=== PATIENT | male | born 1970 ===

== ENCOUNTER 2017-04-03 13:19 | Emergency (ER) | payer MEDICAID, OTHER ==
[2017-04-03 13:19] VITALS: BMI 31.8
[2017-04-03] MEDS ORDERED: Sodium Chloride 0.9% 1,000 ML IV STA ×2 (14:05→18:57)
--- NOTE | 2017-04-03 14:09 | ED PDOC ---
HPI: Abdomen Time Seen by Provider: 04/03/17 13:55 Chief Complaint (Nursing): Abdominal Pain History Per: Patient Onset/Duration Of Symptoms: Days (14) Current Symptoms Are (Timing): Still Present Severity: Moderate Pain Scale Rating Of: 3 Location Of Pain/Discomfort: Diffuse Quality Of Discomfort: Unable To Describe Associated Symptoms: Nausea, Vomiting, Diarrhea. denies: Fever Additional Complaint(s): Generalized abd pain assoc with vomiting and diarrhea x 2 weeks. ? specs of blood in vomitus but not in stool. No fever.H/o Hep C Past Medical History Vital Signs: Last Vital Signs Temp 97.0 F L 04/03/17 13:23 Pulse 76 04/03/17 14:45 Resp 16 04/03/17 13:23 BP 190/113 H 04/03/17 14:45 Pulse Ox 99 04/03/17 14:09 - Medical History PMH: Asthma, Hepatitis (C), HTN Denies: Chronic Kidney Disease - Surgical History Surgical History: Hernia Repair Denies: Pacemaker - Family History Family History: States: Unknown Family Hx - Immunization History Hx Tetanus Toxoid Vaccination: No Hx Influenza Vaccination: No Hx Pneumococcal Vaccination: No - Home Medications Home Medications: Ambulatory Orders Medication Instructions Recorded cloNIDine 0.3 mg/24 hr 0.3 mg TD Q7D 05/07/16 [[id number]] - Allergies Allergies/Adverse Reactions: Allergies Allergy/AdvReac Type Severity Reaction Status Date / Time "hepatitis medication" Allergy RASH Uncoded 04/03/17 13:28 Review of Systems ROS Statement: Except As Marked, All Systems Reviewed And Found Negative Constitutional: Negative for: Fever Gastrointestinal: Positive for: Nausea, Vomiting, Abdominal Pain, Diarrhea Physical Exam - Reviewed Nursing Documentation Reviewed: Yes Vital Signs Reviewed: Yes - Physical Exam Appears: Positive for: Non-toxic, No Acute Distress Head Exam: Positive for: ATRAUMATIC, NORMAL INSPECTION, NORMOCEPHALIC Skin: Positive for: Normal Color, Warm, DRY Eye Exam: Positive for: EOMI, Normal appearance, PERRL ENT: Positive for: Other (Mucous membranes dry) Neck: Positive for: Normal, Painless ROM Cardiovascular/Chest: Positive for: Regular Rate, Rhythm Respiratory: Positive for: CNT, Normal Breath Sounds Gastrointestinal/Abdominal: Positive for: Bowel Sounds, Soft, Tenderness ( diffuse) Back: Positive for: Normal Inspection Extremity: Positive for: Normal ROM Neurologic/Psych: Positive for: Alert, Oriented - Laboratory Results Result Diagrams: 04/03/17 14:15 04/03/17 14:15 - ECG O2 Sat by Pulse Oximetry: 99 Disposition - Clinical Impression Clinical Impression: Abdominal pain - Patient ED Disposition Is Patient to be Admitted: Transfer of Care - Disposition Disposition: Transfer of Care Disposition Time: 15:28 Condition: FAIR Forms: [employer] (Kiswahili) Patient Signed Over To: Marii Cool
[2017-04-03 14:38] LABS: BASO % 0.3 % (0.0-2.0); EOS # 0.2 K/uL (0.0-0.7); EOS % 4.9 % (0.0-4.0); HEMOGLOBIN 15.1 g/dL (12.0-18.0); LYMPH # 0.8 K/uL (1.0-4.3); LYMPH % 23.6 % (20.0-40.0); MEAN CELL VOLUME 95.7 fl (80.0-94.0); MEAN CORPUSCULAR HEMOGLOBIN 33.5 pg (27.0-31.0); MONO # 0.4 K/uL (0.0-0.8); MONO % 11.2 % (0.0-10.0); NEUT # 2.1 K/uL (1.8-7.0); NRBC % 0.2 % (0.0-0.0); RBC 4.5 Mil/uL (4.40-5.90); RED CELL DISTRIBUTION WIDTH 15.2 % (11.5-14.5); WHITE BLOOD COUNT 3.5 K/uL (4.8-10.8)
[2017-04-03 14:59] LABS: ALBUMIN 3.8 g/dL (3.5-5.0); ALT/SGPT 68 U/L (21-72); AST/SGOT 86 U/L (17-59); BLOOD UREA NITROGEN 16 mg/dl (9-20); CALCIUM 8.8 mg/dL (8.4-10.2); GFR AFRICAN-AMERICAN > 60; GFR NON-AFRICAN AMERICAN > 60
[2017-04-03] MEDS ORDERED: Iohexol 300 100 ML IJ ONE (15:50)
[2017-04-03] MEDS ORDERED: Sodium Chloride 0.9% 100 ML ONE (15:50)
[2017-04-03 16:45] VITALS: O2SAT 98
--- NOTE | 2017-04-03 16:51 | ED PDOC ---
- Laboratory Results Result Diagrams: 04/03/17 14:15 04/03/17 14:15 - ECG O2 Sat by Pulse Oximetry: 98 Medical Decision Making Medical Decision Making: Time: 15:00 --Patient endorsed to me by Dr. Black, pending CT scan. Time: 17:02 CT ABDOMEN AND PELVIS FINDINGS: LOWER THORAX: Unremarkable. LIVER: Hepatic steatosis. Nodular hepatic contour. No gross lesion or ductal dilatation. GALLBLADDER AND BILE DUCTS: Gallbladder distention with wall thickening/ edema and pericholecystic fluid. PANCREAS: Unremarkable. No gross lesion or ductal dilatation. SPLEEN: Splenomegaly. ADRENALS: Unremarkable. No mass. KIDNEYS AND URETERS: Bilateral cortical scarring. No hydronephrosis. No solid mass. VASCULATURE: Dilated main portal vein and splenic vein. Recannulized umbilical vein. No aortic aneurysm. BOWEL: Unremarkable. No obstruction. No gross mural thickening. APPENDIX: Normal appendix. PERITONEUM: Bilateral fat containing inguinal hernias. No free fluid. No free air. LYMPH NODES: Unremarkable. No enlarged lymph nodes. BLADDER: Unremarkable. REPRODUCTIVE: Unremarkable. BONES: Market L4-5 degenerative changes. No acute fracture. OTHER FINDINGS: None. IMPRESSION: Gallbladder distention with wall thickening/ edema and pericholecystic fluid. Gallbladder wall thickening is a nonspecific finding which can be seen with hepatitis, cholecystitis, CHF or hypoproteinemic states. Clinical correlation is recommended. If clinical concern for gallbladder pathology exists, a HIDA scan may be performed. Hepatic cirrhosis with portal hypertension and splenomegaly. Time: 19:[address] Gibbons, who advised patient be hydrated with 1L of fluids and follow up with an outpatient clinic. pt refused the iv fluids, and wants to go home. pt yolette be dc and follow up tomorrow w Dr Aggarwal/Edwige. pt tolerated po/. Scribe Attestation: Documented by Edgar Vega, acting as a cesar Cool MD. Provider Scribe Attestation: All medical record entries made by the Scribe were at my direction and personally dictated by me. I have reviewed the chart and agree that the record accurately reflects my personal performance of the history, physical exam, medical decision making, and the department course for this patient. I have also personally directed, reviewed, and agree with the discharge instructions and disposition. Disposition Counseled Patient/Family Regarding: Studies Performed, Diagnosis, Need For Followup - Clinical Impression Clinical Impression: Abdominal pain - POA Present On Arrival: None - Disposition Disposition: Routine/Home Disposition Time: 19:00 Condition: IMPROVED Additional Instructions: follow up with Dr Aggarwal and Dr Gibbons in 2 days as instructed return to ED with any worsening or concerning symptoms Instructions: Nausea and Vomiting, Adult (DC) Forms: [employer] (Khmer), [facility] ED School/Work Excuse
--- NOTE | 2017-04-03 17:04 | CT ---
PROCEDURE: CT Abdomen and Pelvis with contrast HISTORY: Abd pain NVD COMPARISON: None. TECHNIQUE: Contrast dose: 95 mL Omnipaque 300 Radiation dose: Total exam DLP = 1083.7 mGy-cm. This CT exam was performed using one or more of the following dose reduction techniques: Automated exposure control, adjustment of the mA and/or kV according to patient size, and/or use of iterative reconstruction technique. FINDINGS: LOWER THORAX: Unremarkable. LIVER: Hepatic steatosis. Nodular hepatic contour. No gross lesion or ductal dilatation. GALLBLADDER AND BILE DUCTS: Gallbladder distention with wall thickening/ edema and pericholecystic fluid. PANCREAS: Unremarkable. No gross lesion or ductal dilatation. SPLEEN: Splenomegaly. ADRENALS: Unremarkable. No mass. KIDNEYS AND URETERS: Bilateral cortical scarring. No hydronephrosis. No solid mass. VASCULATURE: Dilated main portal vein and splenic vein. Recannulized umbilical vein. No aortic aneurysm. BOWEL: Unremarkable. No obstruction. No gross mural thickening. APPENDIX: Normal appendix. PERITONEUM: Bilateral fat containing inguinal hernias. No free fluid. No free air. LYMPH NODES: Unremarkable. No enlarged lymph nodes. BLADDER: Unremarkable. REPRODUCTIVE: Unremarkable. BONES: Market L4-5 degenerative changes. No acute fracture. OTHER FINDINGS: None. IMPRESSION: Gallbladder distention with wall thickening/ edema and pericholecystic fluid. Gallbladder wall thickening is a nonspecific finding which can be seen with hepatitis, cholecystitis, CHF or hypoproteinemic states. Clinical correlation is recommended. If clinical concern for gallbladder pathology exists, a HIDA scan may be performed. Hepatic cirrhosis with portal hypertension and splenomegaly.
--- NOTE | 2017-04-03 18:28 | US ---
HISTORY: possible cholecystitis COMPARISON: CT abdomen and pelvis from 04/03/2017. TECHNIQUE: Sonographic evaluation of the right upper quadrant of the abdomen. FINDINGS: LIVER: Measures 14.6 cm in length. There is diffuse increased echogenicity with nodular contour. No mass. No intrahepatic bile duct dilatation. GALLBLADDER: There are no gallstones or pericholecystic fluid. There is diffuse gallbladder wall thickening measuring 7 mm. The sonographic Mayfield's sign is negative. COMMON BILE DUCT: Measures 5.0 mm. No stones. No dilatation. PANCREAS: Unremarkable as visualized. No mass. No ductal dilatation. RIGHT KIDNEY: Measures 11.5 cm in length. Normal echogenicity. No calculus, mass, or hydronephrosis. AORTA: No aneurysmal dilatation. IVC: Unremarkable. OTHER FINDINGS: None . IMPRESSION: Findings are concerning with cirrhosis of liver. Diffuse gallbladder wall thickening is likely secondary to hepatic disease. No evidence of cholelithiasis or biliary dilatation.
[2017-04-03 19:10] VITALS: RESP 18
[2017-04-03 19:24] VITALS: BP 178/90; PULSE 79; TEMP 97.8
== END 2017-04-03 19:25 | disposition home or self-care (01) ==
LOC: H.ER 13:19
DX: K40.90 Unilateral inguinal hernia, without obstruction or gangrene, not specified as recurrent (principal); I10 Essential (primary) hypertension; K76.6 Portal hypertension; K74.60 Unspecified cirrhosis of liver; J45.909 Unspecified asthma, uncomplicated
CPT/HCPCS: 74177; 76705; 80053; 85025; 87040; 96374; 99283; J2405; J7040; Q9967

== ENCOUNTER 2017-08-30 23:33 | Emergency (ER) | payer OTHER ==
[2017-08-30 23:34] VITALS: BMI 31.8
[2017-08-31] MEDS ORDERED: Sodium Chloride 0.9% 1,000 ML IV SCH (00:45)
--- NOTE | 2017-08-31 01:26 | ED PDOC ---
Syncope/Near Syncope/Dizziness Time Seen by Provider: 08/31/17 00:18 Chief Complaint (Nursing): Dizziness/Lightheaded Chief Complaint (Provider): Dizziness/Lightheaded History Per: Patient History/Exam Limitations: no limitations Onset/Duration Of Symptoms: Hrs Current Symptoms Are (Timing): Still Present Additional Complaint(s): 47 y/o male with a PMHx of Hepatitis C and cirrhosis presents to the ED complaining of lightheadedness. Patient reports he was recently admitted at [facility] with AFIB and started on Metropolol 2.5 mg Daily at the ED. Patient reports that approximately one hour after taking first dose, he began to feel lightheaded, dizzy and weak. Patient states he feels very dehydrated and has a very dry mouth. Patient reports upon lying down, he feels better. Denies chest pain and shortness of breath. PMD: None Provided Past Medical History Reviewed: Historical Data, Nursing Documentation, Vital Signs Vital Signs: Last Vital Signs Temp 97.9 F 08/30/17 23:59 Pulse 58 L 08/30/17 23:59 Resp 20 08/30/17 23:59 BP 188/99 H 08/30/17 23:59 Pulse Ox 98 08/30/17 23:59 - Medical History PMH: Asthma, Hepatitis (C), HTN Denies: Chronic Kidney Disease - Surgical History Surgical History: Hernia Repair Denies: Pacemaker - Family History Family History: States: Unknown Family Hx - Immunization History Hx Tetanus Toxoid Vaccination: No Hx Influenza Vaccination: No Hx Pneumococcal Vaccination: No - Home Medications Home Medications: Ambulatory Orders Medication Instructions Recorded cloNIDine 0.3 mg/24 hr 0.3 mg TD Q7D 05/07/16 [[id number]] - Allergies Allergies/Adverse Reactions: Allergies Allergy/AdvReac Type Severity Reaction Status Date / Time "hepatitis medication" Allergy RASH Uncoded 08/30/17 23:59 Review of Systems ROS Statement: Except As Marked, All Systems Reviewed And Found Negative Constitutional: Positive for: Weakness Cardiovascular: Negative for: Chest Pain Respiratory: Negative for: Shortness of Breath Neurological: Positive for: Dizziness (and lightheaded) Physical Exam - Reviewed Nursing Documentation Reviewed: Yes Vital Signs Reviewed: Yes - Physical Exam Appears: Positive for: Well, No Acute Distress Head Exam: Positive for: ATRAUMATIC, NORMAL INSPECTION, NORMOCEPHALIC Skin: Positive for: Normal Color, Warm, Dry Eye Exam: Positive for: EOMI, Normal appearance, PERRL ENT: Positive for: Normal ENT Inspection Neck: Positive for: Normal, Painless ROM Cardiovascular/Chest: Positive for: Regular Rate, Rhythm. Negative for: Murmur Respiratory: Positive for: Normal Breath Sounds. Negative for: Respiratory Distress Gastrointestinal/Abdominal: Positive for: Normal Exam, Soft. Negative for: Tenderness Back: Positive for: Normal Inspection Extremity: Positive for: Normal ROM. Negative for: Pedal Edema, Deformity Neurologic/Psych: Positive for: Alert, Oriented (x3). Negative for: Motor/ Sensory Deficits - Laboratory Results Result Diagrams: 08/31/17 02:58 08/31/17 02:58 - ECG O2 Sat by Pulse Oximetry: 98 (RA) Pulse Ox Interpretation: Normal Medical Decision Making Medical Decision Making: Time: 44 A/P: 47 y/o male iwht a PMHx of Hepatitis C, cirrhosis, and A-Fib presenting with lightheadedness after beta chayito usage. -- Patient is well appearing by hypertensive -- Possible having side affect of beta chayito therapy -- Will check electrolyte -- Hydrate patient and re-evaluation -- EKG -- Alchol Serum -- BMP -- Urine Drug Screen -- Troponin I -- CBC with differentials -- PTT -- Prothrombin Time -- CXR One View -- Sodium Chloride IV 1000 mls/hr -- Cardiac Monitory Cont -- Urinalysis 530AM Patient is improving, labs wnl, patient drinking water, blood pressure improved , appearing better, stable gait, advised importance of followup with PMD. Scribe Attestation: Documented by Jose Antonio Salinas acting as a scribe for Dr. Boo Camargo MD. Provider Scribe Attestation: All medical record entries made by the Scribe were at my direction and personally dictated by me. I have reviewed the chart and agree that the record accurately reflects my personal performance of the history, physical exam, medical decision making, and the department course for this patient. I have also personally directed, reviewed, and agree with the discharge instructions and disposition. Disposition - Clinical Impression Clinical Impression: Dizziness - Disposition Referrals: Ruiz Gibbons MD [Family Provider] - Disposition: Routine/Home Disposition Time: 05:30 Condition: IMPROVED Instructions: Side Effects From Medicines, Dizziness, Nonvertigo, (DC) Forms: [employer] (Sinhala)
[2017-08-31 03:17] LABS: BASO % 0.7 % (0.0-2.0); EOS # 0.2 K/uL (0.0-0.7); EOS % 4.8 % (0.0-4.0); HEMOGLOBIN 13.5 g/dL (12.0-18.0); LYMPH # 1.2 K/uL (1.0-4.3); LYMPH % 32.3 % (20.0-40.0); MEAN CELL VOLUME 96.9 fl (80.0-94.0); MEAN CORPUSCULAR HEMOGLOBIN 34.1 pg (27.0-31.0); MEAN CORPUSCULAR HGB CONC 35.2 g/dL (33.0-37.0); MEAN PLATELET VOLUME 8.1 fl (7.2-11.7); MONO # 0.5 K/uL (0.0-0.8); MONO % 12.6 % (0.0-10.0); NEUT # 1.8 K/uL (1.8-7.0); NEUT % 49.6 % (50.0-75.0); NRBC % 0.5 % (0.0-0.0); RBC 3.96 Mil/uL (4.40-5.90); RED CELL DISTRIBUTION WIDTH 15.1 % (11.5-14.5); WHITE BLOOD COUNT 3.6 K/uL (4.8-10.8)
[2017-08-31 03:18] LABS: CALCIUM 8.4 mg/dL (8.4-10.2); GFR AFRICAN-AMERICAN > 60; GFR NON-AFRICAN AMERICAN > 60
[2017-08-31 03:50] LABS: BLOOD UREA NITROGEN 20 mg/dl (9-20)
[2017-08-31 05:07] VITALS: BP 140/99; PULSE 62; RESP 14; TEMP 98
--- NOTE | 2017-08-31 12:00 | RAD ---
Date of service: 08/31/2017 PROCEDURE: CHEST RADIOGRAPH, 1 VIEW HISTORY: dizziness COMPARISON: None available. FINDINGS: LUNGS: Clear. PLEURA: No pneumothorax or pleural fluid seen. CARDIOVASCULAR: Normal. OSSEOUS STRUCTURES: No significant abnormalities. VISUALIZED UPPER ABDOMEN: Normal. OTHER FINDINGS: None. IMPRESSION: No active disease.
--- NOTE | 2017-08-31 13:53 | CARD ---
APPROVED REPORT Date of service: 08/31/2017 EKG Measurement Heart [id number] <Conclusion> Normal sinus rhythm Normal ECG
[2017-08-31 21:00] VITALS: O2SAT 98
== END 2017-08-31 05:45 | disposition home or self-care (01) ==
LOC: H.ER 23:33
DX: R42 Dizziness and giddiness (principal); B19.20 Unspecified viral hepatitis C without hepatic coma; I10 Essential (primary) hypertension; J45.909 Unspecified asthma, uncomplicated

== ENCOUNTER 2017-09-03 20:44 | Observation (INO) | payer OTHER ==
[2017-09-03 20:46] VITALS: BMI 31.8
[2017-09-03 21:47] LABS: BASO % 0.9 % (0.0-2.0); EOS # 0.2 K/uL (0.0-0.7); EOS % 4.7 % (0.0-4.0); HEMOGLOBIN 12.7 g/dL (12.0-18.0); LYMPH # 0.9 K/uL (1.0-4.3); LYMPH % 25.9 % (20.0-40.0); MEAN CELL VOLUME 95.7 fl (80.0-94.0); MEAN CORPUSCULAR HGB CONC 35.5 g/dL (33.0-37.0); MEAN PLATELET VOLUME 7.4 fl (7.2-11.7); MONO # 0.4 K/uL (0.0-0.8); NEUT # 1.9 K/uL (1.8-7.0); NEUT % 57.5 % (50.0-75.0); RBC 3.73 Mil/uL (4.40-5.90); RED CELL DISTRIBUTION WIDTH 15.5 % (11.5-14.5); WHITE BLOOD COUNT 3.3 K/uL (4.8-10.8)
[2017-09-03 21:56] LABS: ALBUMIN 3.3 g/dL (3.5-5.0); ALT/SGPT 56 U/L (21-72); AST/SGOT 69 U/L (17-59); BLOOD UREA NITROGEN 19 mg/dl (9-20); CALCIUM 8.6 mg/dL (8.4-10.2); GFR NON-AFRICAN AMERICAN > 60
--- NOTE | 2017-09-03 22:09 | ED PDOC ---
HPI: Chest Pain Time Seen by Provider: 09/03/17 21:10 Chief Complaint (Nursing): Chest Pain Chief Complaint (Provider): Chest Pain History Per: Patient History/Exam Limitations: no limitations Onset/Duration Of Symptoms: Days (x4) Current Symptoms Are (Timing): Still Present Additional Complaint(s): 47 y/o male with a PMHx of A Fib, HTN and hepatitis C presenting for evaluation of chest pain x4 days. Patient was at this facility 3 days ago and signed out AMA due to dissatisfaction regarding IV placement by a nurse. Patient signed out AMA after being made aware his workup showed he had a soft heart attack. Patient states [place] [facility] [place] developed chest pain in his home. 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 Patient states he saw his PMD, Dr. Gibbons, due to his continued chest pain and he referred him back to this facility to be admitted for workup and cardiac consultation. PMD: Dr. 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)) - Immunization History Hx Tetanus Toxoid Vaccination: No Hx Influenza Vaccination: No Hx Pneumococcal Vaccination: No - Home Medications Home Medications: Ambulatory Orders Medication Instructions Recorded Metoprolol Tartrate [Lopressor] 25 mg PO BID 09/03/17 - Allergies Allergies/Adverse Reactions: Allergies Allergy/AdvReac Type Severity Reaction Status Date / Time trandolapril [From Mavik] Allergy RASH Verified 09/03/17 21:04 Review of Systems ROS Statement: Except As Marked, All Systems Reviewed And Found Negative Cardiovascular: Positive for: Chest Pain Physical Exam - Reviewed Nursing Documentation Reviewed: Yes Vital Signs Reviewed: Yes - Physical Exam Appears: Positive for: Non-toxic, No Acute Distress Head Exam: Positive for: ATRAUMATIC, NORMAL INSPECTION, NORMOCEPHALIC Skin: Positive for: Normal Color, Warm, Dry. Negative for: Rash Eye Exam: Positive for: EOMI, Normal appearance, PERRL ENT: Positive for: Normal ENT Inspection Neck: Positive for: Normal, Painless ROM, Supple Cardiovascular/Chest: Positive for: Regular Rate, Rhythm. Negative for: Murmur Respiratory: Positive for: Normal Breath Sounds. Negative for: Respiratory Distress Gastrointestinal/Abdominal: Positive for: Normal Exam, Soft. Negative for: Tenderness Back: Positive for: Normal Inspection. Negative for: L CVA Tenderness, R CVA Tenderness, Vertebral Tenderness Extremity: Positive for: Normal ROM. Negative for: Pedal Edema, Deformity Neurologic/Psych: Positive for: Alert, Oriented (x3). Negative for: Motor/ Sensory Deficits - Laboratory Results Result Diagrams: 09/03/17 21:44 09/03/17 21:44 - ECG O2 Sat by Pulse Oximetry: 97 (RA) Pulse Ox Interpretation: Normal Medical Decision Making Medical Decision Makin:15 Impression: 47 y/o male with intermittent chest pain Plan: -EKG -CMP -Urine drug screen -Troponin I -CBC w/ differential -PTT/PT -Heplock insertion -Reevaluation 21:40 Case was discussed with Dr. Gibbons. Patient will be placed under observation status for chest pain. Scribe Attestation: Documented by Edgar Vega, acting as a scribe for Elliot Chase MD. Provider Scribe Attestation: All medical record entries made by the Scribe were at my direction and personally dictated by me. I have reviewed the chart and agree that the record accurately reflects my personal performance of the history, physical exam, medical decision making, and the department course for this patient. I have also personally directed, reviewed, and agree with the discharge instructions and disposition. Disposition - Clinical Impression Clinical Impression: Chest pain - Patient ED Disposition Is Patient to be Admitted: Yes Discussed With : Ruiz Gibbons - Disposition Disposition Time: 21:40 Condition: FAIR - Pt Status Changed To: Hospital Disposition Of: Observation
[2017-09-03 22:30] LABS: INR 1.4 (0.9-1.2); PROTHROMBIN TIME 15.5 Seconds (9.8-13.1)
[2017-09-04] MEDS ORDERED: Potassium Chloride 20 mEq ER Tab PO ONE ×2 (00:06→00:57)
[2017-09-04 01:50] LABS: BARBITURATES, UR NEGATIVE (NEGATIVE); BENZODIAZEPINES, UR NEGATIVE (NEGATIVE); OPIATES, UR NEGATIVE (NEGATIVE); PHENCYCLIDINE, UR NEGATIVE (NEGATIVE)
--- NOTE | 2017-09-04 06:47 | CP.PCM.CON ---
History of Present Illness - History of Present Illness History of Present Illness: Consultation for evaluation of chest pain HPI: CP - intermittent x 4-5 days recently at [facility] [place] where he was told that his enzymes are +ve Review of Systems - Review of Systems Systems not reviewed;Unavailable: Acuity of Condition - Constitutional Constitutional: As Per HPI - EENT Eyes: As Per HPI Ears: As Per HPI Nose/Mouth/Throat: As Per HPI - Cardiovascular Cardiovascular: As Per HPI - Respiratory Respiratory: As Per HPI - Gastrointestinal Gastrointestinal: As Per HPI - Genitourinary Genitourinary: As Per HPI - Reproductive: Male Reproductive:Male: As Per HPI - Musculoskeletal Musculoskeletal: As Per HPI - Integumentary Integumentary: As Per HPI - Neurological Neurological: As Per HPI - Psychiatric Psychiatric: As Per HPI - Endocrine Endocrine: As Per HPI - Hematologic/Lymphatic Hematologic: As Per HPI Past Patient History - Past Medical History & Family History Past Medical History?: Yes - Past Social History Alcohol: None 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)) - CARDIAC Hx Atrial Fibrillation: Yes Hx Hypertension: Yes Hx Pacemaker: No - PULMONARY Hx Asthma: Yes - NEUROLOGICAL Hx Neurological Disorder: No - HEENT Hx HEENT Problems: No - RENAL Hx Chronic Kidney Disease: No - ENDOCRINE/METABOLIC Hx Endocrine Disorders: No - HEMATOLOGICAL/ONCOLOGICAL Hx Blood Disorders: Yes Hx Cirrhosis: Yes Hx Hepatitis C: Yes - INTEGUMENTARY Hx Dermatological Problems: No - MUSCULOSKELETAL/RHEUMATOLOGICAL Hx Musculoskeletal Disorders: No Hx Falls: No - GASTROINTESTINAL Hx Gastrointestinal Disorders: Yes Hx Colitis: Yes Other/Comment: Liver Cirrhosis - GENITOURINARY/GYNECOLOGICAL Hx Genitourinary Disorders: No - PSYCHIATRIC Hx Psychophysiologic Disorder: No 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, CURRENTLY SMOKES MARIJUANA) Other/Comment: HX: IVDA - 12 YRS AGO - SURGICAL HISTORY Hx Surgeries: Yes Hx Herniorrhaphy: Yes - ANESTHESIA Hx Anesthesia: Yes Hx Anesthesia Reactions: No Hx Malignant Hyperthermia: No Meds Allergies/Adverse Reactions: Allergies Allergy/AdvReac Type Severity Reaction Status Date / Time trandolapril [From Maisha] Allergy RASH Verified 09/03/17 21:04 - Medications Medications: Current Medications Aspirin (Aspirin) 325 mg PO DAILY STA Stop: 09/04/17 06:45 Enoxaparin Sodium (Lovenox) 40 mg SC DAILY [facility] PRN Reason: Protocol Metoprolol Tartrate (Lopressor) 25 mg PO BID PETR Physical Exam - Constitutional Appears: Well - Head Exam Head Exam: ATRAUMATIC, NORMAL INSPECTION, NORMOCEPHALIC - Eye Exam Eye Exam: EOMI, Normal appearance, PERRL Pupil Exam: NORMAL ACCOMODATION, PERRL - ENT Exam ENT Exam: Mucous Membranes Moist, Normal Exam - Neck Exam Neck exam: Positive for: Normal Inspection - Respiratory Exam Respiratory Exam: Clear to Auscultation Bilateral, NORMAL BREATHING PATTERN - Cardiovascular Exam Cardiovascular Exam: REGULAR RHYTHM - GI/Abdominal Exam GI & Abdominal Exam: Normal Bowel Sounds, Soft. absent: Tenderness - Extremities Exam Extremities exam: Positive for: normal inspection - Back Exam Back exam: NORMAL INSPECTION - Neurological Exam Neurological exam: Alert, CN II-XII Intact, Normal Gait, Oriented x3, Reflexes Normal - Psychiatric Exam Psychiatric exam: Normal Affect, Normal Mood - Skin Skin Exam: Dry, Intact, Normal Color, Warm Results - Vital Signs Recent Vital Signs: Last Vital Signs Temp 98.2 F 09/04/17 05:03 Pulse 55 L 09/04/17 05:03 Resp 18 09/04/17 05:03 BP 160/90 H 09/04/17 05:03 Pulse Ox 98 09/04/17 05:03 - Labs Result Diagrams: 09/03/17 21:44 09/03/17 21:44 Labs: Laboratory Results - last 24 hr 09/03/17 09/03/17 09/03/17 21:44 21:44 22:08 WBC 3.3 L RBC 3.73 L Hgb 12.7 Hct 35.7 MCV 95.7 H MCH 34.0 H MCHC 35.5 RDW 15.5 H Plt Count 59 L MPV 7.4 Neut % (Auto) 57.5 Lymph % (Auto) 25.9 Addison % (Auto) 11.0 H Eos % (Auto) 4.7 H Baso % (Auto) 0.9 Neut # (Auto) 1.9 Lymph # (Auto) 0.9 L Addison # (Auto) 0.4 Eos # (Auto) 0.2 Baso # (Auto) 0.0 PT 15.5 H INR 1.4 H APTT 43.0 H Sodium 141 Potassium 3.3 L Chloride 108 H Carbon Dioxide 25 Anion Gap 11 BUN 19 Creatinine 0.7 L Est GFR ( Amer) > 60 Est GFR (Non-Af Amer) > 60 POC Glucose (mg/dL) Random Glucose 87 Calcium 8.6 Total Bilirubin 2.2 H AST 69 H ALT 56 Alkaline Phosphatase 70 Troponin I 0.0180 Total Protein 6.5 Albumin 3.3 L Globulin 3.2 Albumin/Globulin Ratio 1.0 Urine Opiates Screen Urine Methadone Screen Ur Barbiturates Screen Ur Phencyclidine Scrn Ur Amphetamines Screen U Benzodiazepines Scrn U Oth Cocaine Metabols U Cannabinoids Screen 09/04/17 09/04/17 00:02 01:05 WBC RBC Hgb Hct MCV MCH MCHC RDW Plt Count MPV Neut % (Auto) Lymph % (Auto) Addison % (Auto) Eos % (Auto) Baso % (Auto) Neut # (Auto) Lymph # (Auto) Addison # (Auto) Eos # (Auto) Baso # (Auto) PT INR APTT Sodium Potassium Chloride Carbon Dioxide Anion Gap BUN Creatinine Est GFR ( Amer) Est GFR (Non-Af Amer) POC Glucose (mg/dL) 120 H Random Glucose Calcium Total Bilirubin AST ALT Alkaline Phosphatase Troponin I Total Protein Albumin Globulin Albumin/Globulin Ratio Urine Opiates Screen Negative Urine Methadone Screen Negative Ur Barbiturates Screen Negative Ur Phencyclidine Scrn Negative Ur Amphetamines Screen Negative U Benzodiazepines Scrn Negative U Oth Cocaine Metabols Negative U Cannabinoids Screen Positive H Assessment & Plan (1) Chest pain Assessment and Plan: plan for stress test asa, bb, statins echo Status: Acute
[2017-09-04] MEDS ORDERED: Pneumococcal 23-Valent Vaccine IM ONE (07:42)
[2017-09-04] MEDS ORDERED: Enoxaparin 40 mg Syringe SC SCH (09:00)
--- NOTE | 2017-09-04 12:21 | CARD ---
APPROVED REPORT Date of service: 09/04/2017 EXAM: Two-dimensional and M-mode echocardiogram with Doppler and color Doppler. Other Information Quality : GoodRhythm : NSR INDICATION Chest Pain 2D DIMENSIONS IVSd1.25 (0.7-1.1cm)LVDd5.87 (3.9-5.9cm) LVOT Diameter2.43 (1.8-2.4cm)PWd1.27 (0.7-1.1cm) IVSs1.67 (0.8-1.2cm)LVDs4.24 (2.5-4.0cm) FS (%) 27.8 %PWs1.49 (0.8-1.2cm) M-Mode DIMENSIONS IVSd1.18 (0.7-1.1cm)LVDd8.57 (4.0-5.6cm) PWd1.18 (0.7-1.1cm)IVSs1.51 cm FS (%) 25 %LVDs6.40 (2.0-3.8cm) PWs1.29 cm Aortic Valve AoV Peak Fmwfbbti287.1cm/sAoV VTI31.5cmAO Peak GR.9mmHg LVOT Peak Wweroqwc256.7cm/sLVOT VTI25.37cmAO Mean GR.5mmHg ABEL (VMAX)1.74tf1DOT (VTI)1.72cm2 Mitral Valve MV E Ecghueou05.0cm/sMV DECEL [id number] A Ubftqqvi88.9cm/s MV TYG17fcE/A ratio1.0MVA (PHT)2.22cm2 TDI Lateral E' Peak V6.93cm/sMedial E' Peak V8.47cm/sE/Lateral E'9.2 E/Medial E'7.6 LEFT VENTRICLE The left ventricle is normal size. There is normal left ventricular wall thickness. The left ventricular function is normal. The left ventricular ejection fraction is within the normal range. lvef 65% There is normal LV segmental wall motion. The left ventricular diastolic function is normal. No left ventricle thrombus noted on this study. There is no ventricular septal defect visualized. There is no left ventricular aneurysm. There is no mass noted in the left ventricle. RIGHT VENTRICLE The right ventricle is normal size. There is normal right ventricular wall thickness. The right ventricular systolic function is normal. ATRIA The left atrium size is normal. The right atrium size is normal. The interatrial septum is intact with no evidence for an atrial septal defect. AORTIC VALVE The aortic valve is normal in structure. No aortic regurgitation is present. There is no aortic valvular stenosis. There is no aortic valvular vegetation. MITRAL VALVE The mitral valve is normal in structure. There is no evidence of mitral valve prolapse. There is no mitral valve stenosis. There is no mitral valve regurgitation noted. TRICUSPID VALVE The tricuspid valve is normal in structure. There is trace to mild tricuspid regurgitation. There is no tricuspid valve prolapse or vegetation. There is no tricuspid valve stenosis. PULMONIC VALVE The pulmonary valve is normal in structure. There is no pulmonic valvular regurgitation. GREAT VESSELS The aortic root is normal in size. The IVC is normal in size and collapses >50% with inspiration. PERICARDIAL EFFUSION The pericardium appears normal. <Conclusion> The left ventricle is normal size. There is normal left ventricular wall thickness. The left ventricular function is normal. The left ventricular ejection fraction is within the normal range. lvef 65% The aortic valve is normal in structure.
--- NOTE | 2017-09-04 12:30 | CARD ---
APPROVED REPORT Date of service: 09/03/2017 EKG Measurement Heart [id number] <Conclusion> Sinus rhythm with premature atrial complexes Minimal voltage criteria for LVH, may be normal variant Borderline ECG
--- NOTE | 2017-09-04 12:42 | CP.PCM.HP ---
History of Present Illness - History of Present Illness History of Present Illness: 47 y/o male with multiple chronic medical problems, colitis, hep c, anxiety, htn. Few days before this admission he presented at [facility] with [place]. The troponin level elevated. He was i rapid a. fib. The dx of acute non STEMI was establish and the patient was adviced to have a cardiac cath for further evaluation of his condition. After rx with beta blockers the a. fib resolved. The patient eventually sign AMA the next day he started to c/o CP, anxiety and was seen in ER in [facility]. He sign AMA again. The day of admission , this was the day after he left AMA the [facility] ER, he was seen in my office i advised to go to ER via ambulance, and again he sign AMA. In the late evening he came to ER for similar c/o. Patient stated that at present he has same personal and social problems that is a severe stressor for him. 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)) - CARDIAC Hx Atrial Fibrillation: Yes Hx Hypertension: Yes Hx Pacemaker: No - PULMONARY Hx Asthma: Yes - NEUROLOGICAL Hx Neurological Disorder: No - HEENT Hx HEENT Problems: No - RENAL Hx Chronic Kidney Disease: No - ENDOCRINE/METABOLIC Hx Endocrine Disorders: No - HEMATOLOGICAL/ONCOLOGICAL Hx Blood Disorders: Yes Hx Cirrhosis: Yes Hx Hepatitis C: Yes - INTEGUMENTARY Hx Dermatological Problems: No - MUSCULOSKELETAL/RHEUMATOLOGICAL Hx Musculoskeletal Disorders: No Hx Falls: No - GASTROINTESTINAL Hx Gastrointestinal Disorders: Yes Hx Colitis: Yes Other/Comment: Liver Cirrhosis - GENITOURINARY/GYNECOLOGICAL Hx Genitourinary Disorders: No - PSYCHIATRIC Hx Psychophysiologic Disorder: No 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, CURRENTLY SMOKES MARIJUANA) Other/Comment: HX: IVDA - 12 YRS AGO - SURGICAL HISTORY Hx Surgeries: Yes Hx Herniorrhaphy: Yes - ANESTHESIA Hx Anesthesia: Yes Hx Anesthesia Reactions: No Hx Malignant Hyperthermia: No Meds Allergies/Adverse Reactions: Allergies Allergy/AdvReac Type Severity Reaction Status Date / Time trandolapril [From [facility]] Allergy RASH Verified 09/03/17 21:04 Physical Exam - Constitutional Appears: Chronically Ill - Head Exam Head Exam: ATRAUMATIC, NORMAL INSPECTION, NORMOCEPHALIC - Eye Exam Eye Exam: Normal appearance - ENT Exam ENT Exam: Mucous Membranes Moist - Neck Exam Neck exam: Positive for: Full Rom - Respiratory Exam Respiratory Exam: Decreased Breath Sounds - Cardiovascular Exam Cardiovascular Exam: REGULAR RHYTHM, +S1, +S2 - GI/Abdominal Exam GI & Abdominal Exam: Normal Bowel Sounds - Rectal Exam Rectal Exam: Deferred - Extremities Exam Extremities exam: Positive for: normal inspection - Neurological Exam Neurological exam: Alert, CN II-XII Intact, Oriented x3, Reflexes Normal - Psychiatric Exam Psychiatric exam: Anxious - Skin Skin Exam: Normal Color Results - Vital Signs Recent Vital Signs: Last Vital Signs Temp 98 F 09/04/17 08:00 Pulse 72 09/04/17 09:12 Resp 18 09/04/17 08:00 BP 160/87 H 09/04/17 09:12 Pulse Ox 98 09/04/17 08:00 - Labs Result Diagrams: 09/03/17 21:44 09/03/17 21:44 Labs: Laboratory Results - last 24 hr 09/03/17 09/03/17 09/03/17 21:44 21:44 22:08 WBC 3.3 L RBC 3.73 L Hgb 12.7 Hct 35.7 MCV 95.7 H MCH 34.0 H MCHC 35.5 RDW 15.5 H Plt Count 59 L MPV 7.4 Neut % (Auto) 57.5 Lymph % (Auto) 25.9 Coleman % (Auto) 11.0 H Eos % (Auto) 4.7 H Baso % (Auto) 0.9 Neut # (Auto) 1.9 Lymph # (Auto) 0.9 L Coleman # (Auto) 0.4 Eos # (Auto) 0.2 Baso # (Auto) 0.0 PT 15.5 H INR 1.4 H APTT 43.0 H Sodium 141 Potassium 3.3 L Chloride 108 H Carbon Dioxide 25 Anion Gap 11 BUN 19 Creatinine 0.7 L Est GFR ( Amer) > 60 Est GFR (Non-Af Amer) > 60 POC Glucose (mg/dL) Random Glucose 87 Calcium 8.6 Total Bilirubin 2.2 H AST 69 H ALT 56 Alkaline Phosphatase 70 Troponin I 0.0180 Total Protein 6.5 Albumin 3.3 L Globulin 3.2 Albumin/Globulin Ratio 1.0 Urine Opiates Screen Urine Methadone Screen Ur Barbiturates Screen Ur Phencyclidine Scrn Ur Amphetamines Screen U Benzodiazepines Scrn U Oth Cocaine Metabols U Cannabinoids Screen 09/04/17 09/04/17 00:02 01:05 WBC RBC Hgb Hct MCV MCH MCHC RDW Plt Count MPV Neut % (Auto) Lymph % (Auto) Coleman % (Auto) Eos % (Auto) Baso % (Auto) Neut # (Auto) Lymph # (Auto) Coleman # (Auto) Eos # (Auto) Baso # (Auto) PT INR APTT Sodium Potassium Chloride Carbon Dioxide Anion Gap BUN Creatinine Est GFR ( Amer) Est GFR (Non-Af Amer) POC Glucose (mg/dL) 120 H Random Glucose Calcium Total Bilirubin AST ALT Alkaline Phosphatase Troponin I Total Protein Albumin Globulin Albumin/Globulin Ratio Urine Opiates Screen Negative Urine Methadone Screen Negative Ur Barbiturates Screen Negative Ur Phencyclidine Scrn Negative Ur Amphetamines Screen Negative U Benzodiazepines Scrn Negative U Oth Cocaine Metabols Negative U Cannabinoids Screen Positive H Assessment & Plan (1) Chest pain Status: Acute (2) Cirrhosis Status: Acute (3) Hepatitis C Status: Acute (4) CAD (coronary artery disease) Status: Acute (5) Acute coronary syndrome Status: Acute - Assessment and Plan (Free Text) Plan: As per hx patient was in rapid response a. fib and had NSTEMI just few days ago. For f/u as per orders. Will follow with cardiology.
[2017-09-04] MEDS ORDERED: Metoprolol Succinate 25 mg XL Tab PO STA (14:06)
--- NOTE | 2017-09-04 14:38 | CP.PCM.CON ---
History of Present Illness - History of Present Illness History of Present Illness: consult requested for anxiety 47 y/o male with multiple chronic medical problems, colitis, hep c,pt has previous history of substance abuse, reported he has been abstinent for the past twenty years, currently not in any formal psychiatric treatment pt stated feeling increasingly anxious as he has had conflict with his , for three years, currently she is in the process of filing for divorce , pt stated feeling overwhelmed as she currently has a restraining order against him so he became homeless , he also has been suffering from medical complications, resulting in his hospitalization and missing work days, he reported feeling frustrated, denied any changes in sleep or appetite denied suicidal or homicidal ideation, denied perceptual disturbance, denied substance use Past Patient History - Past Medical History & Family History Past Medical History?: Yes - Past Social History Alcohol: None 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)) - CARDIAC Hx Atrial Fibrillation: Yes Hx Hypertension: Yes Hx Pacemaker: No - PULMONARY Hx Asthma: Yes - NEUROLOGICAL Hx Neurological Disorder: No - HEENT Hx HEENT Problems: No - RENAL Hx Chronic Kidney Disease: No - ENDOCRINE/METABOLIC Hx Endocrine Disorders: No - HEMATOLOGICAL/ONCOLOGICAL Hx Blood Disorders: Yes Hx Cirrhosis: Yes Hx Hepatitis C: Yes - INTEGUMENTARY Hx Dermatological Problems: No - MUSCULOSKELETAL/RHEUMATOLOGICAL Hx Musculoskeletal Disorders: No Hx Falls: No - GASTROINTESTINAL Hx Gastrointestinal Disorders: Yes Hx Colitis: Yes Other/Comment: Liver Cirrhosis - GENITOURINARY/GYNECOLOGICAL Hx Genitourinary Disorders: No - PSYCHIATRIC Hx Psychophysiologic Disorder: No 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, CURRENTLY SMOKES MARIJUANA) Other/Comment: HX: IVDA - 12 YRS AGO - SURGICAL HISTORY Hx Surgeries: Yes Hx Herniorrhaphy: Yes - ANESTHESIA Hx Anesthesia: Yes Hx Anesthesia Reactions: No Hx Malignant Hyperthermia: No Meds Allergies/Adverse Reactions: Allergies Allergy/AdvReac Type Severity Reaction Status Date / Time trandolapril [From [employer]] Allergy RASH Verified 09/03/17 21:04 - Medications Medications: Current Medications Aspirin (Aspirin Chewable) 81 mg PO DAILY [facility] Metoprolol Tartrate (Lopressor) 50 mg PO BID@0900,2100 [facility] Last Admin: 09/04/17 09:12 Dose: Not Given Physical Exam - Psychiatric Exam Additional comments: pt seen in bed partialy cooperative speech normal, mood upset affect constricted , thought form coherent denied any current suicidal or homicidal ideation, denied perceptual disturbance, alert awake ox3 Results - Vital Signs Recent Vital Signs: Last Vital Signs Temp 98.2 F 09/04/17 12:00 Pulse 65 09/04/17 12:00 Resp 20 09/04/17 12:00 BP 162/97 H 09/04/17 12:00 Pulse Ox 98 09/04/17 12:00 - Labs Result Diagrams: 09/03/17 21:44 09/03/17 21:44 Labs: Laboratory Results - last 24 hr 09/03/17 09/03/17 09/03/17 21:44 21:44 22:08 WBC 3.3 L RBC 3.73 L Hgb 12.7 Hct 35.7 MCV 95.7 H MCH 34.0 H MCHC 35.5 RDW 15.5 H Plt Count 59 L MPV 7.4 Neut % (Auto) 57.5 Lymph % (Auto) 25.9 Parke % (Auto) 11.0 H Eos % (Auto) 4.7 H Baso % (Auto) 0.9 Neut # (Auto) 1.9 Lymph # (Auto) 0.9 L Parke # (Auto) 0.4 Eos # (Auto) 0.2 Baso # (Auto) 0.0 PT 15.5 H INR 1.4 H APTT 43.0 H Sodium 141 Potassium 3.3 L Chloride 108 H Carbon Dioxide 25 Anion Gap 11 BUN 19 Creatinine 0.7 L Est GFR ( Amer) > 60 Est GFR (Non-Af Amer) > 60 POC Glucose (mg/dL) Random Glucose 87 Calcium 8.6 Total Bilirubin 2.2 H AST 69 H ALT 56 Alkaline Phosphatase 70 Troponin I 0.0180 Total Protein 6.5 Albumin 3.3 L Globulin 3.2 Albumin/Globulin Ratio 1.0 Urine Opiates Screen Urine Methadone Screen Ur Barbiturates Screen Ur Phencyclidine Scrn Ur Amphetamines Screen U Benzodiazepines Scrn U Oth Cocaine Metabols U Cannabinoids Screen 09/04/17 09/04/17 00:02 01:05 WBC RBC Hgb Hct MCV MCH MCHC RDW Plt Count MPV Neut % (Auto) Lymph % (Auto) Parke % (Auto) Eos % (Auto) Baso % (Auto) Neut # (Auto) Lymph # (Auto) Parke # (Auto) Eos # (Auto) Baso # (Auto) PT INR APTT Sodium Potassium Chloride Carbon Dioxide Anion Gap BUN Creatinine Est GFR ( Amer) Est GFR (Non-Af Amer) POC Glucose (mg/dL) 120 H Random Glucose Calcium Total Bilirubin AST ALT Alkaline Phosphatase Troponin I Total Protein Albumin Globulin Albumin/Globulin Ratio Urine Opiates Screen Negative Urine Methadone Screen Negative Ur Barbiturates Screen Negative Ur Phencyclidine Scrn Negative Ur Amphetamines Screen Negative U Benzodiazepines Scrn Negative U Oth Cocaine Metabols Negative U Cannabinoids Screen Positive H Assessment & Plan - Assessment and Plan (Free Text) Assessment: adjustment disorder with mixed anxiety and depression mood disorder due to medical condition Plan: pt would benefit from starting zoloft 12.5 mg daily also from referral to outpatient psychiatric services for therapy pt at current mental status denied suicidal or homicidal ideation, at current mental status not danger to self or others, pt psychiatricaly cleared for discharge upon medical clearance
--- NOTE | 2017-09-04 18:40 | US ---
Date of service: 09/04/2017 HISTORY: abd pain COMPARISON: CT scan of the abdomen and pelvis dated 04/03/2017. TECHNIQUE: Sonographic evaluation of the abdomen. FINDINGS: LIVER: Measures 16.2 cm. Normal echogenicity of the liver parenchyma. Nodular contour. No mass. No intrahepatic bile duct dilatation. Hepatopetal flow. GALLBLADDER: Nonspecific gallbladder wall thickening/edema. No gallstones. COMMON BILE DUCT: Dilated 7 mm. No stones. No dilatation. PANCREAS: Unremarkable as visualized. No mass. No ductal dilatation. RIGHT KIDNEY: Measures 12.1 x 5.6 x 6.1cm. Normal echogenicity. No calculus, mass, or hydronephrosis. LEFT KIDNEY: Measures 12.9 x 4.2 x 5.9cm. Normal echogenicity. No calculus, mass, or hydronephrosis. SPLEEN: Splenomegaly measuring up to 16.9 cm. AORTA: No aneurysmal dilatation. IVC: Unremarkable. OTHER FINDINGS: None. IMPRESSION: Nonspecific gallbladder wall thickening/ edema without gallstones or sludge. Gallbladder wall thickening is a nonspecific finding which can be seen with ascites, hepatitis, cholecystitis, CHF or hypoproteinemic states. Clinical correlation is recommended. Findings are similar to the prior study. Nonspecific dilatation of the common bile duct measuring 7 mm for which distal choledocholithiasis cannot be excluded. MRCP can be obtained for further evaluation as clinically warranted. Splenomegaly measuring up to 17 cm.
--- NOTE | 2017-09-04 19:06 | CP.PCM.CON ---
History of Present Illness - History of Present Illness History of Present Illness: Initial PGY5 GI Consult note Jose Bray is a 47 yr old M w/ hx of HCV and cirrhosis who presented to the ER with complaints of chest pain. Pt was supposedly at [facility] and has elevated cardiac enzymes. At that time, he signed out AMA. He is current;y undergoing further cardiac work-up. In oct 2015 for colitis and found to have abnormal liver enzymes. subsequent liver testing came back positive for HCv GT 1 a. He is treatment naive. His tranasminases were elevated and his AFP is elevated. His recent EGD revealed small superficial ulcers in gatsric antrum. His Colonoscopy revealed no polyps. He was started on zepatier on 07/19/16. He started having loose watery stools on 07/04 when he started Nexium. After he started zepatier his diarrhea worsened. He supposedly finished 6 weeks of zepatier with profuse loose stools not relieved. Stool infectious work up is negative. He has not cleared HCV on labs from week 4. He had new onset itching and rash on extremities and right chest. He denies alcohol intake. His VL has decreased but not undetectable. In the interim, he not want to see the same GI physcian, therefore was never tx with a 2nd round of anti-virals. PMHx: Hep C, Cirrhosis, HTN PSHx: inguinal hernia w/ mesh Social Hx: Current 1 pack every 2 days for 30+ years. Denies ETOH, Denies illicit drugs. 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)) - CARDIAC Hx Atrial Fibrillation: Yes Hx Hypertension: Yes Hx Pacemaker: No - PULMONARY Hx Asthma: Yes - NEUROLOGICAL Hx Neurological Disorder: No - HEENT Hx HEENT Problems: No - RENAL Hx Chronic Kidney Disease: No - ENDOCRINE/METABOLIC Hx Endocrine Disorders: No - HEMATOLOGICAL/ONCOLOGICAL Hx Blood Disorders: Yes Hx Cirrhosis: Yes Hx Hepatitis C: Yes - INTEGUMENTARY Hx Dermatological Problems: No - MUSCULOSKELETAL/RHEUMATOLOGICAL Hx Musculoskeletal Disorders: No Hx Falls: No - GASTROINTESTINAL Hx Gastrointestinal Disorders: Yes Hx Colitis: Yes Other/Comment: Liver Cirrhosis - GENITOURINARY/GYNECOLOGICAL Hx Genitourinary Disorders: No - PSYCHIATRIC Hx Psychophysiologic Disorder: No 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, CURRENTLY SMOKES MARIJUANA) Other/Comment: HX: IVDA - 12 YRS AGO - SURGICAL HISTORY Hx Surgeries: Yes Hx Herniorrhaphy: Yes - ANESTHESIA Hx Anesthesia: Yes Hx Anesthesia Reactions: No Hx Malignant Hyperthermia: No Meds Allergies/Adverse Reactions: Allergies Allergy/AdvReac Type Severity Reaction Status Date / Time trandolapril [From [employer]] Allergy RASH Verified 09/03/17 21:04 - Medications Medications: Current Medications Aspirin (Aspirin Chewable) 81 mg PO DAILY [facility] Metoprolol Tartrate (Lopressor) 50 mg PO BID@0900,2100 [facility] Last Admin: 09/04/17 09:12 Dose: Not Given Physical Exam - Constitutional Appears: Well, No Acute Distress - Head Exam Head Exam: ATRAUMATIC, NORMOCEPHALIC - Eye Exam Eye Exam: Normal appearance - ENT Exam ENT Exam: Mucous Membranes Moist, Normal Exam - Neck Exam Neck exam: Positive for: Normal Inspection - Respiratory Exam Respiratory Exam: Clear to Auscultation Bilateral, NORMAL BREATHING PATTERN. absent: Rales, Rhonchi, Wheezes, Respiratory Distress - Cardiovascular Exam Cardiovascular Exam: REGULAR RHYTHM, +S1, +S2 - GI/Abdominal Exam GI & Abdominal Exam: Normal Bowel Sounds, Soft. absent: Distended, Firm, Guarding, Organomegaly, Rebound, Rigid - Extremities Exam Extremities exam: Negative for: joint swelling, pedal edema - Neurological Exam Neurological exam: Alert, Oriented x3 - Psychiatric Exam Psychiatric exam: Normal Affect, Normal Mood - Skin Skin Exam: Dry, Intact, Normal Color, Warm Results - Vital Signs Recent Vital Signs: Last Vital Signs Temp 98.1 F 09/04/17 15:48 Pulse 71 09/04/17 15:48 Resp 20 09/04/17 15:48 BP 169/92 H 09/04/17 15:48 Pulse Ox 97 09/04/17 15:48 - Labs Result Diagrams: 09/03/17 21:44 09/03/17 21:44 Labs: Laboratory Results - last 24 hr 09/03/17 09/03/17 09/03/17 21:44 21:44 22:08 WBC 3.3 L RBC 3.73 L Hgb 12.7 Hct 35.7 MCV 95.7 H MCH 34.0 H MCHC 35.5 RDW 15.5 H Plt Count 59 L MPV 7.4 Neut % (Auto) 57.5 Lymph % (Auto) 25.9 Stearns % (Auto) 11.0 H Eos % (Auto) 4.7 H Baso % (Auto) 0.9 Neut # (Auto) 1.9 Lymph # (Auto) 0.9 L Stearns # (Auto) 0.4 Eos # (Auto) 0.2 Baso # (Auto) 0.0 PT 15.5 H INR 1.4 H APTT 43.0 H Sodium 141 Potassium 3.3 L Chloride 108 H Carbon Dioxide 25 Anion Gap 11 BUN 19 Creatinine 0.7 L Est GFR ( Amer) > 60 Est GFR (Non-Af Amer) > 60 POC Glucose (mg/dL) Random Glucose 87 Calcium 8.6 Total Bilirubin 2.2 H AST 69 H ALT 56 Alkaline Phosphatase 70 Troponin I 0.0180 Total Protein 6.5 Albumin 3.3 L Globulin 3.2 Albumin/Globulin Ratio 1.0 Urine Opiates Screen Urine Methadone Screen Ur Barbiturates Screen Ur Phencyclidine Scrn Ur Amphetamines Screen U Benzodiazepines Scrn U Oth Cocaine Metabols U Cannabinoids Screen 09/04/17 09/04/17 00:02 01:05 WBC RBC Hgb Hct MCV MCH MCHC RDW Plt Count MPV Neut % (Auto) Lymph % (Auto) Stearns % (Auto) Eos % (Auto) Baso % (Auto) Neut # (Auto) Lymph # (Auto) Stearns # (Auto) Eos # (Auto) Baso # (Auto) PT INR APTT Sodium Potassium Chloride Carbon Dioxide Anion Gap BUN Creatinine Est GFR ( Amer) Est GFR (Non-Af Amer) POC Glucose (mg/dL) 120 H Random Glucose Calcium Total Bilirubin AST ALT Alkaline Phosphatase Troponin I Total Protein Albumin Globulin Albumin/Globulin Ratio Urine Opiates Screen Negative Urine Methadone Screen Negative Ur Barbiturates Screen Negative Ur Phencyclidine Scrn Negative Ur Amphetamines Screen Negative U Benzodiazepines Scrn Negative U Oth Cocaine Metabols Negative U Cannabinoids Screen Positive H Assessment & Plan - Assessment and Plan (Free Text) Assessment: Assessment: Jose Lombardo is a 46M w/ hx of HTN, HCV, and cirrhosis who presented to the ER with chest pain. Elevated LFTs likely 2/2 cirrhosis and HCV Cirrhosis likely 2/2 HCV and ETOH Chronic HCV Plan: -continue care as per primary team -needs to follow-up with outpt GI, in regards to HCV treatment -avoid EtOH -continue cardiac w/u -recommend follow-up at [facility] in [place] for tx -no need for colonoscopy and endoscopy D/W Dr. Flynn
[2017-09-04 22:46] VITALS: RESP 18
[2017-09-05 08:03] VITALS: BP 148/86; PULSE 54; TEMP 97.6; O2SAT 98
--- NOTE | 2017-09-05 13:35 | CP.PCM.PN ---
Objective - Vital Signs/Intake and Output Vital Signs (last 24 hours): Temp Pulse Resp BP Pulse Ox 97.6 F 54 L 18 148/86 98 09/05/17 08:03 09/05/17 08:03 09/05/17 08:03 09/05/17 08:03 09/05/17 08:03 - Medications Medications: Current Medications Aspirin (Aspirin Chewable) 81 mg PO DAILY [facility] Last Admin: 09/04/17 19:56 Dose: Not Given Metoprolol Tartrate (Lopressor) 50 mg PO BID@0900,2100 [facility] Last Admin: 09/04/17 21:40 Dose: 50 mg - Labs Labs: 09/03/17 21:44 09/03/17 21:44 PT 15.5 Seconds (9.8-13.1) H 09/03/17 22:08 INR 1.4 (0.9-1.2) H 09/03/17 22:08 APTT 43.0 Seconds (25.6-37.1) H 09/03/17 22:08 Assessment and Plan (1) Chest pain Status: Acute
== END 2017-09-05 15:42 | disposition short-term general hospital (02) ==
LOC: H.ER 20:44 → H.ERHOLD 21:39 → H.TEL 09-04 01:25
PROVIDERS: ADMIT Internal Medicine; ATTEND Internal Medicine
DX: R07.9 Chest pain, unspecified (principal); I25.10 Atherosclerotic heart disease of native coronary artery without angina pectoris; K70.30 Alcoholic cirrhosis of liver without ascites; B18.2 Chronic viral hepatitis C; I48.91 Unspecified atrial fibrillation; I10 Essential (primary) hypertension; F43.23 Adjustment disorder with mixed anxiety and depressed mood; F12.90 Cannabis use, unspecified, uncomplicated; F10.10 Alcohol abuse, uncomplicated; F17.210 Nicotine dependence, cigarettes, uncomplicated; J45.909 Unspecified asthma, uncomplicated
CPT/HCPCS: 76700; 80053; 80324; 80345; 80346; 80349; 80353; 80358; 80361; 82948; 83992; 84484; 85025; 85610; 85730; 93005; 93306; 99285; G0378